=== PATIENT | male | born 1995 | race Caucasian/White ===

== ENCOUNTER 2023-08-20 11:14 | Emergency (ER) | payer OTHER, SELFPAY ==
[2023-08-20 11:23] VITALS: BP 130/77; PULSE 88; RESP 16; TEMP 36.7; O2SAT 100
--- NOTE | 2023-08-20 11:26 | ED.EYEPROB ---
HPI - Eye Problem General Chief complaint: Eye Problems Stated complaint: Rt Eye Irritation Time Seen by Provider: 08/20/23 11:26 Source: patient Mode of arrival: ambulatory Limitations: no limitations History of Present Illness HPI Narrative: 27-year-old male presents with complaint of redness, swelling and tenderness to right upper eyelid upon awakening this morning. Patient denies drainage, irritation or redness to right eye. Patient is concerned that he was bit by spider during the night. All systems reviewed and negative except as noted above. Related Data Allergies Allergy/AdvReac Type Severity Reaction Status Date / Time No Known Allergies Allergy Mild Unverified 08/20/23 11:21 Review of Systems Review of Systems: CONSTITUTIONAL: Denies fever, chills, or sweats. EYES: Denies visual changes, redness, or discharge. ENT: Denies rhinorrhea, congestion, sore throat, or otalgia. CARDIOVASCULAR: Denies chest pain, palpitations, or edema. RESPIRATORY: Denies cough or dyspnea. GASTROINTESTINAL: Denies abdominal pain, nausea, vomiting, or diarrhea. GENITOURINARY: Denies dysuria or hematuria. SKIN: Denies rash or itching. Reports redness, swelling and tenderness to right upper eyelid. MUSCULOSKELETAL: Denies back pain, joint pain, or myalgia. NEUROLOGIC: Denies headache, numbness, or weakness. PSYCHIATRIC: Denies anxiety or depression. All other systems reviewed are negative, except as documented in HPI. [facility] Social History Social History Smoking status: Never smoker Second hand tobacco smoke exposure: No Alcohol intake: current Substance use: current Substance use type: marijuana Living arrangements: with roommate(s) Occupation/Education: unemployed Gender identity (if verbalized by the patient): Male Sexual Orientation (if Verbalized by the Patient): Straight or Heterosexual Comments At time of signature, agree with nursing past medical, surgical, social and family history. There is no relevant family history pertinent to the presenting complaint. Exam Narrative: GENERAL: This is a well-nourished, well-developed patient, in no apparent distress. HEAD: normocephalic, atraumatic. EYES: PERRL. Sclera clear/white. No drainage. vision is grossly intact. Right upper eyelid is erythematous, swollen, tender on palpation. There is no fluctuance concerning for abscess. EARS: External ears normal NOSE: External nose normal NECK: Neck supple, non-tender without lymphadenopathy, masses or thyromegaly. CARDIOVASCULAR: Regular rate and rhythm without murmurs, gallops, or rubs. RESPIRATORY: Clear to auscultation. Breath sounds equal bilaterally. No wheezes, rales, or rhonchi. SKIN: warm, Dry, intact with no suspicious lesions or rash, good texture and turgor. NEURO: awake, alert, and oriented to person, place and time. There were no obvious focal neurologic abnormalities. EXTREMITIES: No joint tenderness, effusion, or edema noted. Course Course Level of Care: Express Care Visit Vital Signs Vital signs: Vital Signs Temperature 36.7 C 08/20/23 11:23 Pulse Rate 88 08/20/23 11:23 Respiratory Rate 16 08/20/23 11:23 Blood Pressure 130/77 08/20/23 11:23 Pulse Oximetry 100 08/20/23 11:23 Temperature 36.7 C 08/20/23 11:23 Pulse Rate 88 08/20/23 11:23 Respiratory Rate 16 08/20/23 11:23 Blood Pressure 130/77 08/20/23 11:23 Pulse Oximetry 100 08/20/23 11:23 Reviewed MDM - Eye Problem MDM Narrative Medical decision making narrative: Patient is aware of diagnosis, understands and agrees to treatment plan. Anticipatory guidance given. Patient agrees to follow-up as directed and is aware of reasons to seek care at the emergency department. Portions of this record may have been created with voice recognition software Medical Records Medical records narrative: Stye versus cellulitis versus insect bite
== END 2023-08-20 11:37 | disposition home or self-care (01) ==
PROVIDERS: Emergency Provider Nurse Practitioner Family; PCP Family Medicine
DX: H02.89 Other specified disorders of eyelid (principal); H02.841 Edema of right upper eyelid; F12.90 Cannabis use, unspecified, uncomplicated
CPT/HCPCS: 99213; G0463